=== PATIENT | male | born 1955 | race Caucasian/White ===

== ENCOUNTER 2021-11-16 17:43 | Emergency (ER) | payer MEDICARE, SELFPAY ==
[2021-11-16 17:44] VITALS: BP 122/82; PULSE 108; RESP 18; TEMP 36.5; O2SAT 94; BMI 36.6
--- NOTE | 2021-11-16 17:50 | EKG12_ITS ---
Test Reason : SOB Blood Pressure : / mmHG Vent. Rate : 087 BPM Atrial Rate : 087 BPM P-R Int : 146 ms QRS Dur : 132 ms QT Int : 414 ms P-R-T Axes : 034 -33 015 degrees QTc Int : 498 ms Normal sinus rhythm Left axis deviation Right bundle branch block Abnormal ECG Confirmed by BERONICA KENNY, BONNIE ([id number]), photography editor KRISTEN RICH ([id number]) on 11/17/2021 10:24:13 A M Referred By: NICA Confirmed By:SHANIA LOCO MD
--- NOTE | 2021-11-16 17:55 | NURSING ---
NO OLD EKGS
--- NOTE | 2021-11-16 18:00 | RAD_ITS ---
STUDY: X-RAY CHEST REASON FOR EXAM: Male, 66 years old. Chest pain. Dizziness and shortness of breath. Nausea and vomiting for 2 weeks. TECHNIQUE: Single AP portable view of the chest. COMPARISON: None. FINDINGS: Lungs are well-expanded. There is patchy predominantly peripheral pulmonary infiltrates suspicious for COVID pneumonia. There is no demonstrated pleural abnormality. Normal size heart. Normal mediastinum and cayla. Normal visualized pulmonary arteries. Normal visualized aortic arch and descending thoracic aorta. Normal visualized thoracic spine. Normal visualized ribs, clavicles, and shoulders. There is no demonstrated abnormality of the visualized soft tissue structures of the upper abdomen. RAD/Chest 1 View (Portable) IMPRESSION: Question COVID pneumonia. Electronically Signed: Lucian Taylor DO at 18:25 EST ,
[2021-11-16 18:08] LABS: Absolute Lymphocyte Count 1.75 X10^3/uL (0.83-4.51); Absolute Neutrophil Count 7.8 X10^3/uL (2.0-7.7); Basophil# 0.02 X10^3/uL; Basophil% 0.2 % (0-1); Eosinophil# 0.11 X10^3/uL; Hematocrit 45.9 % (40-54); Hemoglobin 15.6 g/dL (13.0-16.5); Lymphocyte # 1.75 X10^3/ul (0.83-4.51); Lymphocyte % 16.3 % (19-41); Mean Corpuscular Hgb 29.9 pg (27.0-32.0); Mean Corpuscular Volume 87.9 fL (80-94); Mean Platelet Vol. 9.4 fl (6.2-12.0); Monocyte% 9.3 % (0-10); NRBC Flagged by Analyzer 0 % (0-5); Neutrophil % 72.5 % (47-70); Platelet Count 479 K/mm3 (150-450); RBC Distribution Width CV 13.4 % (11.6-14.6); RBC Distribution Width SD 43.4 fl (35.1-43.9); Red Blood Count 5.22 M/mm3 (4.6-6.2); White Blood Count 10.8 K/mm3 (4.4-11.0)
[2021-11-16 18:27] LABS: Anion Gap 13 (5-15); BUN 28 mg/dL (7-18); BUN/Creat Ratio 28.6 RATIO (10-20); Calcium,Total 8.9 mg/dL (8.5-10.1); Chloride 105 mmol/L (98-107); Creatinine, Serum 0.98 mg/dL (0.70-1.30); EST Glomerular Filtration Rate 81 mL/min (>60); Est Glom Filt Rate - Afr Amer 98 mL/min (>60); Glucose 119 mg/dL (74-106); Potassium 3.4 mmol/L (3.5-5.1); Sodium Level 135 mmol/L (136-145); Troponin-I HS 14 pg/mL (3.0-78.0)
[2021-11-16 18:59] VITALS: BP 152/74; PULSE 94; RESP 24; TEMP 36.6; O2SAT 97
--- NOTE | 2021-11-16 20:15 | EDS_ITS ---
HPI HPI - URI History of Present Illness Chief Complaint: Shortness of Breath Informant: patient Onset/Context/Timing Onset: Weeks Context: Gradual Onset Timing: Continuous Current Severity: Mild Maximum Severity: Mild Associated Symptoms Associated Symptoms: Positive for Nasal Congestion, Myalgias, Nausea, Vomiting, Diarrhea, Shortness of Breath and Nonproductive cough; Negative for Chest Pain, Hemoptysis and Productive Cough Narrative Narrative: 66-year-old male states no stated past medical history. But he has not seen a doctor for a while. States had a cough for the last 2 weeks and he calls it the flu. He was not vaccinated against COVID. He developed nausea vomiting diarrhea in the last week. Fever and chills. Body aches. He denies melena. He denies hemoptysis no chest pain. Just says he does not feel well. Prior similar symptoms: No Recent Illness/Hospitalization: No ROS ROS ED ROS Narrative Fever and chills. Cough. Body aches. Nausea, vomiting and diarrhea. Shortness of breath. Review of Systems ROS Unobtainable: Denies due to encephalopathy Constitutional Constitutional ED: Reports chills, fever(s) and subjective Eyes Eyes: Denies change in vision ENT ENT ED: Reports rhinorrhea; Denies ear pain Cardiovascular Cardiovascular: Denies chest pain or palpitations Respiratory/Chest Respiratory/Chest: Reports cough and dyspnea; Denies sputum Gastrointestinal Gastrointestinal: Reports diarrhea, nausea and vomiting; Denies abdominal pain, constipation or melena Genitourinary Genitourinary ED: Denies dysuria Musculoskeletal Musculoskeletal: Reports myalgias Integumentary Denies rash Neurologic Neurologic: Denies headache(s) Psychiatric Psychiatric: Denies depression Endocrine Endocrinology: Denies polyuria Hematologic/Lymphatic Hematologic/Lymphatic: Denies easy bruising Allergic/Immunologic Allergic/Immunologic ED: Denies urticaria PFSH PFSH Medical History (Updated 11/16/21 @ 22:[address] Jacky Chauhan MD) Dog bite Medical History no medical history no medical history Home Medications dexamethasone [Decadron] 6 mg PO DAILY 7 Days #7 tab 11/16/21 [Rx Last Taken Unknown] ondansetron 4 mg PO Q6H PRN #10 tab 11/16/21 [Rx Last Taken Unknown] Allergy/AdvReac Type Severity Reaction Status Date / Time No Known Allergies Allergy Verified 11/16/21 17:47 Social History Smoking Status: Never smoker EXAM Physical Exam Narrative Exam Narrative: No acute distress vital signs stable he is afebrile. His pulse ox 94% on room air no hypoxia. HEENT exam dry mucous membranes. Neck nontender no lymphadenopathy. Lungs clear to auscultation bilaterally. Heart regular rhythm rate about 100 no murmur. Abdomen soft nontender normal bowel sounds no peritoneal signs. Moving all 4 extremities. Calves are nontender without edema or cords. Normal strength upper and lower extremities. Back nontender. Neurologically is awake and alert with no focal motor deficits. Const Vital Signs: 11/16/21 17:44 11/16/21 18:59 11/16/21 19:01 Temperature 97.7 F L 98 F Temperature Source Temporal Temporal Pulse Rate 108 H 94 Respiratory Rate 18 24 H Respiratory Effort Short of Breath Respiratory Depth Shallow Respiratory Pattern Normal Blood Pressure 122/82 H 152/74 H Blood Pressure Mean 95 100 Pulse Ox 94 97 Oxygen Delivery Method Room Air Room Air Room Air 11/16/21 20:19 11/16/21 22:12 Temperature Temperature Source Pulse Rate 83 63 Respiratory Rate 25 H 18 Respiratory Effort Respiratory Depth Respiratory Pattern Blood Pressure 135/74 H 158/85 H Blood Pressure Mean 94 109 Pulse Ox 95 92 Oxygen Delivery Method Room Air Positive well nourished, well developed and obese; Negative for cachectic or contractures General Appearance ED: well developed and NAD; Negative for cachectic, contractures, cyanotic, diaphoretic or pallor Nutritional Appearance: obese; Negative for cachectic HEENT Reports dry mucous membranes normocephalic and atraumatic External Ear: external ears normal Mouth ED: Yes dry mucous membranes Mouth: dry mucous membranes Eyes PERRL and EOMs intact bilaterally Neck no lymphadenopathy, supple, no meningeal signs and no JVD General: Negative for anterior neck swelling or lymphadenopathy Resp normal respiratory effort and clear to auscultation bilaterally Auscultation: Negative for rales, rhonchi or wheezes Cardio S1 normal heart sound, S2 normal heart sound and no murmurs Rate: regular rate Rhythm: regular rhythm GI non-distended and no masses Inspection: Negative for abdominal distention Auscultation: normoactive bowel sounds; Negative for hyperactive bowel sounds or hypoactive bowel sounds Palpation: soft; Negative for tender, guarding, hepatomegaly or splenomegaly Back/Spine no CVA tenderness and normal ROM General Back: Negative for CVA tenderness Cervical Spine: Negative for cervical spine tenderness Thoracic Spine / Upper Back: Negative for thoracic spinal tenderness Extremity normal to inspection and full ROM General Extremety ED: Negative for cyanosis or tenderness General Extremity: Negative for cyanosis Neuro oriented x3 Sensorium / Orientation: alert, oriented to person, oriented to place and oriented to time; Negative for orientation impaired, lethargic or stuporous Motor Exam: strength 5/5 throughout Psych mental status grossly normal Mood & Affect: Negative for depressed or tearful Skin General Skin Exam: Negative for jaundice or pallor Lesions: no lesions Rashes: no rashes MDM MDM MDM Narrative Medical decision making narrative: 36-year-old male with shortness of breath and cough. Concern for Covid versus pneumonia versus other etiologies. Patient clinically looks dehydrated is consistent with his labs will be given a liter normal saline. Covid test pending. Repeat exam patient is doing well at 10:12 PM patient I discussed that if this is COVID pneumonitis. I explained to him why the rapid antigen test may be negative. Were to send a PCR test. He will be started on Decadron. And a prescription for Zofran for nausea. He knows to return if worse. He has no primary care physician I will refer him to someone for follow-up. Lab Data Attestation: I reviewed the patient's lab results. Lab results narrative: CBC shows a white count of 10.8. H&H of 15 and 45. Platelets of 479. Electrolytes sodium 135. Potassium 3.4. Gap of 13. BUN of 28 creatinine 0.98 consistent with dehydration. Glucose of 119. Troponin 14 Rapid Covid test is negative however the patient's had symptoms for 2 weeks so it may be a false negative and he may need a PCR.. Labs: Laboratory Results - last 24 hr 11/16/21 11/16/21 17:52 17:52 WBC 10.8 RBC 5.22 Hgb 15.6 Hct 45.9 MCV 87.9 MCH 29.9 MCHC 34.0 RDW Std Deviation 43.4 RDW Coeff of Leann 13.4 Plt Count 479 H MPV 9.4 Immature Gran % (Auto) 0.700 Neut % (Auto) 72.5 H Lymph % (Auto) 16.3 L [place] % (Auto) 9.3 Eos % (Auto) 1.0 Baso % (Auto) 0.2 Absolute Neuts (auto) 7.8 H Absolute Lymphs (auto) 1.75 Nucleated RBC % 0 Sodium 135 L Potassium 3.4 L Chloride 105 Carbon Dioxide 17.0 L Anion Gap 13 BUN 28 H Creatinine 0.98 Estim Creat Clear Calc 64.50 Est GFR (MDRD) Af Amer 98 Est GFR (MDRD) Non-Af 81 BUN/Creatinine Ratio 28.6 H Glucose 119 H Calcium 8.9 Troponin I High Sens 14 Radiography Diagnostic Testing: Clinical Impression(s) from Imaging Studies Chest X-Ray 11/16/21 18:00 IMPRESSION: Question COVID pneumonia. Electronically Signed: Lucian Taylor DO at 18:25 EST Reading Location ID and State: [address] [place] [address] Tel [phone], Service support , Chest x-ray, portable, portable single view interpreted by myself and radiologist appears to have bilateral infiltrates consistent with Covid pneumonitis. Rhythm Strip Rhythm Strip: Sinus Rhythm Rate: 87 Ectopy: None EKG Initial EKG: Attestation: I personally reviewed and interpreted this EKG as follows: Interpretation: Sinus Rhythm, No Acute Injury Pattern and RBBB Comments: Normal sinus rhythm rate 87. No acute signs of IA or ischemia. Right bundle branch block. Prior EKG tracings: not available for review Discharge Plan Triage Chief Complaint: Shortness of Breath ED Provider: Jacky Chauhan Dx/Rx/DC Orders Clinical Impression: COVID-19, Vomiting Instructions: ED Vomiting and Diarrhea ..., Human Coronaviruses Prescriptions: New ondansetron 4 mg tablet,disintegrating 4 mg PO Q6H PRN (Reason: nausea and vomiting) Qty: 10 RF: 0 dexamethasone [Decadron] 6 mg tablet 6 mg PO DAILY 7 Days Qty: 7 RF: 0 Primary Care Provider: Care Physician,No Primary Referrals: Milton Sun MD [NON-STAFF] - 1 Week if not improving Care Physician,No Primary [Primary Care Provider] - Activity Restrictions/Additional Instructions: Clinically I think you have Covid even with the test being negative. We will send the other test tonight. Zofran as needed for nausea. Plenty of fluids and rest. Daily Decadron which is a steroid which will help with your breathing and inflammation in your lungs. Return the emergency department if feeling a lot worse otherwise follow-up with a primary care physician if not improving. Disposition Disposition: Home, Self Care
[2021-11-16] MEDS: 0.9% Normal Saline 1,000 ML 999 ML IV (20:18)
[2021-11-16 20:19] VITALS: BP 135/74; PULSE 83; RESP 25; O2SAT 95
[2021-11-16] MEDS: Ondansetron 4 MG/2 ML Vial IV (20:24)
[2021-11-16 22:12] VITALS: BP 158/85; PULSE 63; RESP 18; O2SAT 92
[2021-11-16] MEDS: dexAMETHasone 2 MG TABLET 6 MG PO (22:33)
--- NOTE | 2021-11-17 17:10 | CASEMGMT ---
VALERY SANCHEZ ED follow-up: Date of ED visit: 11/16/2021 Presenting ER complaint: shortness of breath VALERY SANCHEZ placed call to patient's telephone number listed on demographics and patient answered. VALERY SANCHEZ introduced self and role at [facility] and stated reason for call. Patient reports feeling a lot better today and reports he is eating and drinking well without nausea or vomiting. 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 Patient was informed of positive COVID PCR test and states he just received a text informing him of the same. Patient instructed to quarantine and schedule follow-up appointment with provider listed on discharge instructions. Encouraged to obtain pulse oximeter to monitor SpO2. Patient then asks VALERY SANCHEZ to speak with his brother, Walter, whom he lives with. VALERY SANCHEZ instructed brother of same and explained where to locate pulse oximeter and approximate cost. Patient's brother instructed on symptomatic treatment and red flag signs to monitor for. Voices understanding. Patient's brother denies questions or concerns. VALERY Bradford CM
== END 2021-11-16 22:41 | disposition home or self-care (01) ==
PROVIDERS: Emergency Provider Emergency Medicine; Visit Provider Emergency Medicine
DX: U07.1 COVID-19 (principal); R11.10 Vomiting, unspecified; E66.9 Obesity, unspecified
CPT/HCPCS: 71045; 80048; 84484; 85025; 87426; 87635; 93005; 96361; 96374; 99285; J7030; A4216; J2405; U0003; U0005